=== PATIENT | female | born 1990 | race American Indian/Alaskan Native ===

== ENCOUNTER 2021-05-03 09:42 | Emergency (ER) | payer SELFPAY ==
[2021-05-03 09:51] VITALS: BP 130/70
--- NOTE | 2021-05-03 10:13 | Emergency Department Report ---
ED ENT HPI - General Chief complaint: Earache Stated complaint: RHT EAR PAIN Time Seen by Provider: 05/03/21 09:49 Source: patient Mode of arrival: Ambulatory Limitations: No Limitations - History of Present Illness Initial comments: 31-year-old -[place] female presents to the ER today with complaints of pain to her right ear. Patient states that she been having this right ear discomfort since around March 2021. She reports an achy, pressure, stinging pain to her right ear which radiates into her right jaw and sometimes feels like it is in her teeth. She states that in the beginning of April she did start noticing some yellow drainage from the ear. She finally went to an urgent care in April, and he prescribed a nasal spray, Zyrtec and something for pain. She states that she was told she has fluid in the ear but she was not prescribed any antibiotics. She states that she did call an ENT, but she currently does not have any insurance and is unable to afford the visit. She states that she has been taking [id number] Advil without much relief of her pain. She states that this pain just will not go away. She denies any URI symptoms or cough. She denies fever or chills. Or any injury to her ear. complaint: ear pain -: week(s) Location: R ear - Related Data Previous Rx's Medication Instructions Recorded Last Taken Type Amoxicillin [Trimox CAP] 500 mg PO Q8H #30 capsule 05/03/21 Unknown Rx Ibuprofen [Motrin] 600 mg PO Q8H PRN #30 tablet 05/03/21 Unknown Rx predniSONE [Deltasone] 40 mg PO QDAY #10 tab 05/03/21 Unknown Rx Allergies Allergy/AdvReac Type Severity Reaction Status Date / Time No Known Allergies Allergy Verified 05/03/21 09:46 ED Dental HPI - General Chief complaint: Earache Stated complaint: RHT EAR PAIN Time Seen by Provider: 05/03/21 09:49 Source: patient Mode of arrival: Ambulatory Limitations: No Limitations - Related Data Previous Rx's Medication Instructions Recorded Last Taken Type Amoxicillin [Trimox CAP] 500 mg PO Q8H #30 capsule 05/03/21 Unknown Rx Ibuprofen [Motrin] 600 mg PO Q8H PRN #30 tablet 05/03/21 Unknown Rx predniSONE [Deltasone] 40 mg PO QDAY #10 tab 05/03/21 Unknown Rx Allergies Allergy/AdvReac Type Severity Reaction Status Date / Time No Known Allergies Allergy Verified 05/03/21 09:46 ED Review of Systems ROS: Stated complaint: RHT EAR PAIN Other details as noted in HPI Comment: All other systems reviewed and negative Constitutional: denies: chills, fever Eyes: denies: eye pain, eye discharge, vision change ENT: ear pain. denies: dental pain, hearing loss, epistaxis, congestion Respiratory: denies: cough, shortness of breath, SOB with exertion, SOB at rest, wheezing Cardiovascular: denies: chest pain, palpitations, dyspnea on exertion, edema, syncope, paroxysmal nocturnal dyspnea Gastrointestinal: denies: abdominal pain, nausea, vomiting, diarrhea, constipation, hematemesis, hematochezia Genitourinary: denies: urgency, dysuria, frequency, hematuria, discharge, abnormal menses, dyspareunia Musculoskeletal: denies: back pain, joint swelling, arthralgia Skin: denies: rash, lesions Neurological: denies: headache, weakness, paresthesias ED Past Medical Hx - Medications Home Medications: Home Medications Medication Instructions Recorded Confirmed Last Taken Type Amoxicillin [Trimox CAP] 500 mg PO Q8H #30 capsule 05/03/21 Unknown Rx Ibuprofen [Motrin] 600 mg PO Q8H PRN #30 tablet 05/03/21 Unknown Rx predniSONE [Deltasone] 40 mg PO QDAY #10 tab 05/03/21 Unknown Rx ED Physical Exam - General Limitations: No Limitations General appearance: alert, in no apparent distress - Head Head exam: Present: atraumatic, normocephalic, normal inspection - Eye Eye exam: Present: normal appearance, PERRL, EOMI Pupils: Present: normal accommodation - ENT ENT exam: Present: mucous membranes moist, TM's normal bilaterally - Expanded ENT Exam Expanded Ear exam: Present: normal external inspection, other (no mastoid swelling, erythema or ttp ) TM/Canal exam: Erythema: Right TM (mild), Effusion: Right TM, Left TM Mouth exam: Present: normal external inspection Teeth exam: Present: normal inspection Throat exam: Positive: normal inspection - Neck Neck exam: Present: normal inspection, full ROM. Absent: meningismus - Respiratory Respiratory exam: Present: normal lung sounds bilaterally. Absent: respiratory distress, wheezes, rales, rhonchi - Cardiovascular Cardiovascular Exam: Present: regular rate, normal rhythm, normal heart sounds - GI/Abdominal GI/Abdominal exam: Present: soft. Absent: distended, tenderness, guarding - Neurological Exam Neurological exam: Present: alert, oriented X3, CN II-XII intact, normal gait - Psychiatric Psychiatric exam: Present: normal affect, normal mood - Skin Skin exam: Present: intact ED Course Vital Signs 05/03/21 09:47 Temperature 98.7 F Pulse Rate 85 Respiratory 18 Rate Blood Pressure 130/70 O2 Sat by Pulse 99 Oximetry Critical care attestation.: If time is entered above; I have spent that time in minutes in the direct care of this critically ill patient, excluding procedure time. ED Disposition Clinical Impression: Serous otitis media Disposition: HOME / SELF CARE / HOMELESS Is pt being admited?: No Does the pt Need Aspirin: No Condition: Stable Instructions: Eustachian Tube Dysfunction, Otitis Media, Adult, [id number] Additional Instructions: Take the amoxicillin and the prednisone as prescribed. Continue the zyrtec and flonase. You can take motrin for pain as needed. Most importantly call to make an appointment for follow up with your ENT if your symptoms continue to not im prove despite antibiotic and steroids. Return to the ER if worse. Prescriptions: predniSONE [Deltasone] 40 mg PO QDAY #10 tab Ibuprofen [Motrin] 600 mg PO Q8H PRN #30 tablet PRN Reason: Pain Amoxicillin [Trimox CAP] 500 mg PO Q8H #30 capsule Referrals: FABI MACK MD [Staff Physician] - 3-5 Days Forms: Work/School Release Form(ED) Time of Disposition: 10:13
== END 2021-05-03 10:59 | disposition home or self-care (01) ==
LOC: ED 09:42
DX: H65.91 Unspecified nonsuppurative otitis media, right ear (principal)
CPT/HCPCS: 99282